=== PATIENT | female | born 1985 | race Native Hawaiian/Other Pacific Islander ===

== ENCOUNTER 2024-11-06 13:58 | Emergency (ER) | payer OTHER, SELFPAY ==
--- NOTE | ~2024-11-06 | CT_ITS ---
EXAMINATION: CT HEAD WITHOUT CONTRAST CLINICAL INFORMATION: Right-sided headache. 39-year-old female. COMPARISON: None available. TECHNIQUE: Contiguous axial imaging was performed from the skull base to vertex without intravenous administration of contrast. This CT examination was performed using dose optimization techniques as appropriate, variously including the following: *Automated exposure control *Adjustment of mA and/or kV according to patient size (this includes techniques or standardized protocols for targeted exams where dose is matched to indication/reason for exam; i.e. extremities or head) *Use of iterative reconstruction technique FINDINGS: There is no evidence of intracranial hemorrhage or extra-axial fluid collection. There is no mass effect, or edema. No CT evidence of acute territorial infarct. Ventricles, sulci, and cisterns are normal in size and configuration for patient age. No hydrocephalus. No midline shift. Negative hyperdense MCA sign. Negative insular ribbon sign. No significant white matter abnormalities. Normal pituitary. Globes and orbital contents image normally. No extracranial soft tissue abnormalities. The paranasal sinuses, mastoid air cells, and tympanic cavities are normally aerated. No suspicious bony abnormalities. There are no acute fractures evident. CT/CT head/brain wo IV con IMPRESSION: No acute intracranial abnormality. Normal examination. Electronically signed by: Herman Fields MD 11/06/2024 02:38 PM EDT
[2024-11-06 14:04] VITALS: BP 125/89; PULSE 102; RESP 16; TEMP 36.6; O2SAT 98; BMI 24.9
--- NOTE | 2024-11-06 14:06 | ED.GENADULT ---
HPI - General Adult General Chief complaint: Dental/Oral Stated complaint: Dental Pain Time Seen by Provider: 11/06/24 14:21 Source: patient, RN notes reviewed and old records reviewed Mode of arrival: ambulatory Limitations: no limitations History of Present Illness ED Provider: Maycol SPANN narrative: 39-year-old female presents for evaluation of facial pain and headache. She also complains of a sore throat since yesterday. Her facial pain and a headache has been going on for a couple of weeks. She reports that she had dental work done with a root canal about 1 month ago. She reports that they ?went too high. ? She is having pain to the right upper incisor that radiates to the right side of her face and head. She reports her headache is severe, 02/05 Denies any recent trauma. She finished a course of amoxicillin 2 days ago per her report Related Data Previous Rx's ?Medication ?Instructions ?Recorded clindamycin HCl 300 mg capsule 300 mg PO BID #21 caps 11/06/24 (Cleocin HCl) oxycodone 5 mg tablet 5 mg PO Q6H PRN severe pain (scale 11/06/24 score 7-10) #12 tabs Allergies Allergy/AdvReac Type Severity Reaction Status Date / Time diphenhydramine (From Allergy Intermediate HIVES Verified 11/06/24 14:04 BENADRYL) Review of Systems Constitutional: Constitutional: Denies body ache(s), Denies chills, Denies fever(s) and Reports headache(s) ENT: Reports headache(s), Reports mouth pain and Reports sore throat Cardiovascular: Cardiovascular: Denies chest pain and Denies dyspnea on exertion Respiratory: Respiratory: Denies cough and Denies dyspnea on exertion Gastrointestinal: Gastrointestinal: Denies abdominal pain, Denies nausea and Denies vomiting Genitourinary: Genitourinary: Denies dysuria Musculoskeletal: Musculoskeletal: Denies back pain Integumentary/Breasts: Skin/Breast: Denies rash Neurologic: Reports headache(s) [facility] Social History Social History Advance Directives: No Advance Directives Information Provided: Yes Do you have a plan to hurt others: No Plan Physical Exam ED Vital Signs: Vital Signs - 24 hr 11/06/24 14:04 11/06/24 16:00 Temperature 97.9 F 98.0 F Pulse Rate 102 H 98 Respiratory Rate 16 16 Blood Pressure 125/89 122/90 H Pulse Oximetry 98 98 Oxygen Delivery Method Room Air Room Air BMI result Body Mass Index 24.9 Const General: healthy appearing, comfortable, no acute distress, alert and awake Nutritional Appearance: well nourished Orientation/consciousness: patient oriented x3 HENMT Other: No facial edema, no gingival edema, no evidence of dental abscess. No retropharyngeal edema, no retropharyngeal erythema or tonsillar exudates. Uvula midline Head: Yes normocephalic and Yes atraumatic Eyes Eyelids: Yes eyelids normal Conjunctivae: conjunctivae normal Sclerae: sclerae normal Corneas: corneas normal Pupils: Equal, round and reactive pupils present EOM: EOMs intact bilaterally Neck Neck: Yes full ROM Resp Effort & Inspection: normal respiratory effort, able to speak in complete sentences and not labored Skin General skin exam: elasticity normal Neuro General: patient oriented x3 Cranial nerves: Yes CN's II-XII intact bilaterally, Yes Equal, round and reactive pupils present and Yes Bilaterally intact EOM present Cognition (Neuro): normal cognition Extrem Other: Moving all extremities well without any obvious deformities Course Course Course Narrative: RME, this is a rapid medical exam performed by Albino Severino please refer to primary provider for complete H&P- 39-year-old female presents for evaluation of multiple complaints. Her primary complaint is right upper dental pain. She reports having had a root canal about a month ago and the dentist ?messed up and has to go back in. ? The patient is on antibiotics up until 2 days ago. She complains of a severe right-sided headache. She also reports a sore throat and painful swallowing. She is requesting a head CT due to the pain in her head. We will get a strep test as well Medications Administered Discontinued Medications Generic Name Dose Route Start Last Admin Trade Name Freq PRN Reason Stop Dose Admin Oxycodone HCl 5 mg 11/06/24 15:22 11/06/24 15:59 Oxycodone Hcl Immed Release 5 Mg Tablet PO 11/06/24 15:23 5 mg ONCE ONE Administration Medical Decision Making Medical Decision Making MDM Narrative: 39-year-old female presents for evaluation of dental pain and has pain radiating to the right side of her head that she describes as severe. She has no neuro deficits, no objective findings on exam. She may have dental issues related to her recent root canal. She reports that she is scheduled for further dental work in the next few weeks. She is quite well appearing but complaining of headache. I will order a CT scan of her head per her request no I have a low suspicion for significant findings. I discussed this with her and she would like to proceed with a head CT. A strep test was ordered and given her complaints of sore throat but she has no significant erythema or exudates to suggest strep pharyngitis. We will treat her pain with oxycodone Differential Diagnosis Differential Diagnoses: The differential diagnosis associated with the presentation includes Atypical facial pain Headache Dental abscess Gingivitis Pharyngitis Lab Data Labs: Lab Results 11/06/24 11/06/24 Range/Units 14:39 16:20 S. pyogenes GrpA RADHA Cancelled Negative Radiology Impression Discussion of test interpretation with radiology: I have reviewed the radiologist's reading. Radiologist Impression: FINDINGS: There is no evidence of intracranial hemorrhage or extra-axial fluid collection. There is no mass effect, or edema. No CT evidence of acute territorial infarct. Ventricles, sulci, and cisterns are normal in size and configuration for patient age. No hydrocephalus. No midline shift. Negative hyperdense MCA sign. Negative insular ribbon sign. No significant white matter abnormalities. Normal pituitary. Globes and orbital contents image normally. No extracranial soft tissue abnormalities. The paranasal sinuses, mastoid air cells, and tympanic cavities are normally aerated. No suspicious bony abnormalities. There are no acute fractures evident. CT/CT head/brain wo IV con IMPRESSION: No acute intracranial abnormality. Normal examination. Electronically signed by: Herman Fields MD 11/06/2024 02:38 PM EDT Discharge Plan Discharge Clinical Impression: Toothache, Headache Patient Disposition: Home, Self-Care Instructions: Acute Headache (ED), Toothache (ED) Additional Instructions: Take clindamycin 3 times daily for 1 week to treat any potential dental infections You may use ibuprofen/Tylenol for pain. You may use oxycodone for more severe, breakthrough pain. This may make you drowsy, do drink alcohol or drive after taking it. Your strep test was negative. The CT scan of your head did not show any concerning findings In his important to follow up with your dentist Prescriptions: New clindamycin HCl [Cleocin HCl] 300 mg capsule 300 mg PO BID Qty: 21 0RF oxycodone 5 mg tablet 5 mg PO Q6H PRN (Reason: severe pain (scale score 7-10)) Qty: 12 0RF Rx Instructions: Partial Fill upon patient request. Print Language: Finnish
--- OUTSIDE RECORDS SUMMARY | 2024-11-06 14:37 | XMS_ITS | Clinical Summary ---
Author Organization [facility] [address] [place] [address] [place] [phone] Phone Care Team Providers Care Supervisor [employer] Name Role Phone Haris Franco MD Primary Care Provider Allergies Active Allergy Reactions Criticality Noted Date Comments Azithromycin Nausea And Vomiting Medium 08/31/2020 Diphenhydramine Hcl Hives,Rash 01/27/2014 Medications escitalopram (LEXAPRO) 10 mg tablet Take 1 tablet (10 mg total) by mouth 1 (one) time each day. 10/22/2023 Active camphor-methyl salicyl-menthoL (Salonpas) 3.1-10-6 % adhesive patch,medicated Apply 1 each topically. 02/26/2023 Active buPROPion XL (WELLBUTRIN XL) 150 mg 24 hr tablet Take 1 tablet (150 mg total) by mouth 1 (one) time each day in the morning. 90 tablet 1 04/14/2024 Active LORazepam (ATIVAN) 0.5 mg tablet Take 1 tablet (0.5 mg total) by mouth 1 (one) time each day if needed for anxiety (severe). Max Daily Amount: 0.5 mg 15 tablet 04/14/2024 Active Active Problems Problem Noted Date Diagnosed Date Anxiety and depression 04/01/2024 Back pain 04/01/2024 Marijuana user 01/30/2023 Panic attack 08/02/2022 Encounters Date Type Department Care Team Description 08/13/2024 Telephone Adult Medicine [facility] [place] [address] [place] [address] Haris Franco MD Breast Problem (Swelling) from Last 3 Months Immunizations Name Administration Dates Next Due Influenza trivalent, 0.5mL, preservative free (Fluarix; FluLaval; Fluzone) ages 6mo and older (Afluria) 3 years and older 01/27/2014 Moderna SARS-CoV-2 COVID-19, mRNA, LNP-S, preservative free 02/01/2022 Tdap Tetanus diptheria acell ular pertussis (Boostrix; Adacel) 7yo and older 01/30/2023,10/20/2012 Surgical History Surgery Date Site/Laterality Comments OTHER SURGICAL HISTORY PROCEDURE: HISTORICAL ARM SURGERY Medical History Medical History Date Comments Back pain DX:Back pain Anxiety DX:Anxiety Family history of breast cancer DX:Family history of breast cancer Family History Medical History Relation Name Comments Breast cancer Aunt -maternal aunt , unilateral Coronary artery disease Father jeferson l failure Diabetes Father's side 1 Glaucoma Maternal Grandfather of heart attack in his 40s Breast cancer Maternal Grandmother in her 50s Diabetes Maternal Grandmother breast ca Bipolar disorder Mother Cervical cancer Other [address] cousin Other: heart disease Other 2 2 pater nal great uncles; dad's sibs Other: Other Other 3 paternal 1st co usin once removed-cancer Other: heart disease Paternal Grandfather diabetes, dementia; alive at 91 2013 Other: Other Paternal Grandmother well at 90 in 2013 Blindness Neg Hx Cataracts Neg Hx Colon cancer Neg Hx Macular degeneration Neg Hx Ovarian cancer Neg Hx Pancreatic cancer Neg Hx Strabismus Neg Hx Relation Name Status Comments Aunt Father Father's side 1 Father's side 2 Maternal Grandfather Maternal Grandmother Mother Other 1 Other 2 Other 3 Other 4 Paternal Grandfather Paternal Grandmother Social History Tobacco Use Types Packs/Day Years Used Date Smoking Tobacco: Every Day Cigarettes Started: 10/27/2013 Smokeless Tobacco: Never Tobacco Cessation:Ready to Q uit: Not Asked; Counseling Given: Not Answered Alcohol Use Standard Drinks/Week Comments No 0 (1 standard drink = 0.6 oz pur e alcohol) Comments No Sex and Gender Information Value Date Recorded Sex Assigned at Not on file Legal Sex Female 4:18 AM EST Gender Identity Not on file Sexual Orientation Not on file Obstetrics History Para Term AB IAB SAB Ectopic Multiple Livin g Live Births 1 1 1 1 Date Outcome GA Total Labor Labor//3rd Weight Sex Type Anes PTL Nohelia A1 A5 Name Clin Term Last Filed Vital Signs Vital Sign Reading Time Taken Comments Blood Pressure 108/74 06/02/2024 11:10 AM EST Pulse 90 06/02/2024 11:10 AM EST Temperature 36.8 C (98.2 F) 06/02/2024 11:10 AM EST Respiratory Rate 16 06/02/2024 11:10 AM EST Oxygen Saturation - - Inhaled Oxygen Concentration - - Weight 64 kg (141 lb) 06/02/2024 11:10 AM EST Height 154.9 cm (5' 1 ) 06/02/2024 11:10 AM EST Body Mass Index 26.64 06/02/2024 11:10 AM EST Plan of Treatment Health Maintenance Due Date Last Done Comments Hepatitis B Vaccines (1 of 3 - 19+ 3-dose series) 2005 Pneumococcal Vaccine: Pediatrics (0 to 5 Years) and At-Risk Patients (6 to 49 Years) (1 of 2 - PCV) 2005 Depression Screening 04/01/2022 Hepatitis C Screening 04/01/2022 Social Influencers of Health Screening 04/01/2022 COVID-19 Vaccine (2 - 2023-2 5 season) 2023 02/01/2022 Cervical Cancer Screening: P ap Smear 01/18/2024 01/17/2021 Influenza Vaccine (#1) 2024 01/27/2014 Cholesterol Screening (Lipid Panel) 01/31/2028 01/30/2023 DTaP,Tdap,and Td Vaccines (3 - Td or Tdap) 01/30/2033 01/30/2023, 10/20/2012 HIV Screening Completed 10/28/2023 HIB Vaccines Aged Out No longer eligi ble based on patient's age to complete this topic HPV Vaccines Aged Out No longer eligi ble based on patient's age to complete this topic Hepatitis A Vaccines Aged Out No long er eligible based on patient's age to complete this topic IPV Vaccines Aged Out No longer eligi ble based on patient's age to complete this topic MMR Vaccines Aged Out No longer eligi ble based on patient's age to complete this topic Meningococcal ACWY Vaccine Aged Out N o longer eligible based on patient's age to complete this topic Meningococcal B Vaccine Aged Out No l onger eligible based on patient's age to complete this topic RSV Immunization Patients Under 20 months Aged Out No longer eligible b ased on patient's age to complete this topic Varicella Vaccines Aged Out No longer eligible based on patient's age to complete this topic Procedures Procedure Name Priority Date/Time Associated Diagnosis Comments PAP SMEAR Routine 01/17/2021 from Last 3 Months or Most Recently Relevant to Health Maintenance Results * Pap smear (01/17/2021) 01/17/2021 Narrative HISTORICAL TESTING LAB RESULTING AGENCY - 01/31/2021 1:06 PM EDT [id number] THINPREP PAP, IMAGED: NEGATIVE FOR SQUAMOUS INTRAEPITHELIAL LESION AND MALIGNANCY . DEE BOOTH(ASCP) (CASE ELECTRONICALLY SIGNED 01 31 2021) RESULT OF APTIMA HIGH RISK HPV ASSAY: HIGH RISK HPV: NEGATIVE (SEROTYPES 16,18,31,33,35,39,45,51,52,56,58,59,66,68) COMPLETED ON 2021-01-20 ADEQUACY: SATISFACTORY ENDOCERVICAL/TRANSFORMATION ZONE COMPONENT PRESENT. SOURCE: THINPREP PAP HPV ANY DX: REFLEX 16 AND 18, CERVICAL, IMAGED CLINICAL INFORMATION: HPV ANY DIAGNOSIS. PAP HX NEG, NO LMP RECORDED [Z12.4, Z01.419] us Shauna Elaine [facility] LAB CYTOLOGY ORDERABLES Final Result HISTORICAL TESTING LAB RESULTING AGENCY from Last 3 Months or Most Recently Relevant to Health Maintenance Insurance [facility] Care Teams Supervisor [employer] Relationship Specialty Start Date End Date Haris Franco MD [address] [place] [id number] PCP - General 08/02/22
[2024-11-06] MEDS: oxyCODONE HCl Immed Release 5 MG TABLET PO (15:59)
[2024-11-06 16:00] VITALS: BP 122/90; PULSE 98; RESP 16; TEMP 36.7; O2SAT 98
[2024-11-06 16:34] LABS: IDNOW Serial# 55D5AD1C; Strep A Nucleic Acid Negative (Negative)
[2024-11-06 16:47] VITALS: BP 122/90; PULSE 98; RESP 16; TEMP 36.7; O2SAT 98
== END 2024-11-06 16:54 | disposition home or self-care (01) ==
PROVIDERS: Physician Assistant; Emergency Provider Emergency Medicine; PCP Internal Medicine
DX: R51.9 Headache, unspecified (principal); K08.89 Other specified disorders of teeth and supporting structures
CPT/HCPCS: 70450; 87651; 99283; 99284

== ENCOUNTER → 2024-11-06 14:06 | Outpatient (BNV) | payer MEDICAID, SELFPAY | PROVIDERS: PCP Internal Medicine; Visit Provider Radiology Diagnostic Radiology | DX: R51.9 Headache, unspecified (principal) | CPT/HCPCS: 70450 ==